=== PATIENT | female | born 1990 | race African-American/Black ===

== ENCOUNTER 2018-05-26 12:31 | Emergency (ER) | payer BC ==
[2018-05-26 13:27] VITALS: BP 118/83
[2018-05-26] MEDS ORDERED: KETOROLAC TROMETHAMINE 60 MG/2 ML SDV IM ONE (13:30)
--- NOTE | 2018-05-26 13:39 | ER Document Report ---
HPI - HPI Pain Level: 4 Context: Patient is a 28-year-old healthy female complaining of acute low back pain 3 days. Patient reports that pain started after she [place]. Patient denies any direct trauma to her back. She denies any fever. No paresthesia or radiculopathy. Patient walks without difficulty. Patient has no previous history of back pain. Associated Symptoms: None Exacerbated by: Movement Relieved by: Denies Similar symptoms previously: No Recently seen / treated by doctor: No - ROS Systems Reviewed and Negative: Yes All other systems reviewed and negative - CONSTITUTIONAL Constitutional: DENIES: Fever, Chills - REPRODUCTIVE Reproductive: DENIES: : Past Medical History - General Information source: Patient - Social History Smoking Status: Never Smoker Frequency of alcohol use: None Drug Abuse: None Lives with: Family Family History: Reviewed & Not Pertinent Patient has suicidal ideation: No Patient has homicidal ideation: No - Past Medical History Cardiac Medical History: Denies: Hx Coronary Artery Disease, Hx Heart Attack, Hx Hypertension Pulmonary Medical History: Denies: Hx Asthma, Hx Bronchitis, Hx COPD, Hx Pneumonia Neurological Medical History: 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 Denies: Hx Cerebrovascular Accident Renal/ Medical History: Denies: Hx Peritoneal Dialysis Musculoskeletal Medical History: Denies Hx Arthritis Past Surgical History: Reports: Hx Section, Hx Orthopedic Surgery - left knee - Immunizations Hx Diphtheria, Pertussis, Tetanus Vaccination: No - unsure Vertical Provider Document - CONSTITUTIONAL Agree With Documented VS: Yes Exam Limitations: No Limitations - HEENT HEENT: Atraumatic, PERRLA - NECK Neck: Normal Inspection, Supple - RESPIRATORY Respiratory: Breath Sounds Normal, No Respiratory Distress - CARDIOVASCULAR Cardiovascular: Regular Rate, Regular Rhythm - BACK Back: Abnormal Inspection - Positive lumbar spinal and paraspinal tenderness. Mild left SI tenderness. Negative straight leg test. No foot drop. Ambulatory without difficulty Course - Re-evaluation Re-evalutation: 05/26/18 13:37 Patient presents with acute low back pain without signs of spinal cord compression, cauda equina, infection, aneurysm or other serious etiology. Patient is neurologically intact, independently and steadily ambulatory without paresthesia or neurologic deficits. Given the extremely low risk of these diagnoses further testing and evaluation is not indicated today. Home care, follow-up with primary care and ED return precautions were discussed with the patient. Patient was given an IM injection of Toradol in the emergency department. Short course of anti-inflammatories and muscle relaxants prescribed for the patient. Patient verbalizes understanding of plan and is stable for discharge - Vital Signs Vital signs: Temp Pulse Resp BP Pulse Ox 97.8 F 68 18 118/83 99 05/26/18 13:16 05/26/18 13:16 05/26/18 13:16 05/26/18 13:16 05/26/18 13:16 Discharge - Discharge Clinical Impression: Low back pain Qualifiers: Chronicity: acute Back pain laterality: midline Sciatica presence: without sciatica Qualified Code(s): M54.5 - Low back pain Condition: Stable Disposition: HOME, SELF-CARE Instructions: Ice Packs ([facility]), Warm Packs ([facility]), Low Back Pain ([facility]), Muscle Relaxers ([facility]), Ibuprofen (General) ([facility]), Toradol Injection ([facility]) Additional Instructions: Take medications as prescribed Alternate ice and heat to the sore area Recommend topical anesthetic such as Aspercreme with lidocaine Follow-up with your primary care if pain persists more than 10 days Prescriptions: Ibuprofen [Motrin 800 Mg Tablet] 800 mg PO Q6H #20 tablet Methocarbamol [Robaxin 500 Mg Tablet] 1,000 mg PO Q6 #30 tablet Forms: Return to Work Referrals: SEBASTIÁN GLEASON DO [Primary Care Provider] - Follow up as needed
== END 2018-05-26 14:10 | disposition home or self-care (01) ==
LOC: ER 12:31
DX: M54.5 Low back pain (principal)
CPT/HCPCS: 99283; 96372; J1885

== ENCOUNTER 2018-07-16 19:14 | Emergency (ER) | payer SELFPAY ==
[2018-07-16 19:20] VITALS: BP 138/91
[2018-07-16] MEDS ORDERED: METOCLOPRAMIDE HCL ORAL SOLN 10 MG/10 ML UDCUP PO ONE (19:53)
[2018-07-16] MEDS ORDERED: MAG HYDROX/AL HYDROX/SIMETH SUSP 30 ML UDCUP PO ONE (19:53)
[2018-07-16] MEDS ORDERED: LIDOCAINE 2% VISCOUS SOLN 20 ML UDCUP PO ONE (19:53)
--- NOTE | 2018-07-16 20:20 | ER Document Report ---
ED Medical Screen (RME) - General Chief Complaint: Abdominal Pain Stated Complaint: ABDOMINAL PAIN Time Seen by Provider: 07/16/18 19:42 TRAVEL OUTSIDE OF THE [place] IN LAST 30 DAYS: No - HPI Patient complains to provider of: abdominal pain Onset: Other - This is a 28-year-old otherwise healthy female who presents for burning epigastric pain which she has had for the last several months. She was previously evaluated in outside hospital at which time she improved with the administration of some medication there and was prescribed an acid pill which she took with only modest improvement in her symptoms thereafter. Since that time she has been unable to follow-up as she lost insurance. She denies any fevers or chills, emesis, discolored stools, foul-smelling stools, chest pain shortness of breath or fatigue. - Related Data Allergies/Adverse Reactions: ibuprofen [From Advil] Allergy (Intermediate, Verified 07/16/18 19:15) Facial swelling amoxicillin [Amoxicillin] Allergy (Unknown, Verified 07/16/18 19:15) Unknown reaction Penicillins Allergy (Unknown, Verified 07/16/18 19:15) Unknown reaction Contrast Dye Allergy (Uncoded 07/16/18 19:15) Past Medical History - General Information source: Patient - Social History Chew tobacco use (# tins/day): No Frequency of alcohol use: None Drug Abuse: None - Past Medical History Cardiac Medical History: Denies: Hx Coronary Artery Disease, Hx Heart Attack, Hx Hypertension Pulmonary Medical History: Denies: Hx Asthma, Hx Bronchitis, Hx COPD, Hx Pneumonia Neurological Medical History: 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 Denies: Hx Cerebrovascular Accident Renal/ Medical History: Denies: Hx Peritoneal Dialysis Musculoskeltal Medical History: Denies Hx Arthritis Past Surgical History: Reports: Hx Section, Hx Orthopedic Surgery - left knee - Immunizations Hx Diphtheria, Pertussis, Tetanus Vaccination: No - unsure Review of Systems - Review of Systems -: Yes All other systems reviewed and negative Physical Exam - Vital signs Vitals: Temp Pulse Resp BP Pulse Ox 98.6 F 78 16 138/91 H 98 07/16/18 19:18 07/16/18 19:18 07/16/18 19:18 07/16/18 19:18 07/16/18 19:18 - General General appearance: Appears well In distress: None - HEENT Head: Normocephalic Eyes: Normal Conjunctiva: Normal Cornea: Normal Extraocular movements intact: Yes Eyelashes: Normal Pupils: PERRL - Respiratory Respiratory status: No respiratory distress Chest status: Nontender Breath sounds: Normal Chest palpation: Normal - Cardiovascular Rhythm: Regular Heart sounds: Normal auscultation Murmur: No - Abdominal Inspection: Normal Distension: No distension Tenderness: Nontender - Back Back: Normal - Extremities General upper extremity: Normal inspection, Nontender, Normal ROM, Normal strength General lower extremity: Normal inspection, Nontender, Normal ROM, Normal strength - Neurological Neuro grossly intact: Yes Cognition: Normal Orientation: AAOx4 [place] Coma Scale Eye Opening: Spontaneous [place] Coma Scale Verbal: Oriented [place] Coma Scale Motor: Obeys Commands [place] Coma Scale Total: 15 Speech: Normal Cranial nerves: Normal Cerebellar coordination: Normal Motor strength normal: LUE, RUE, LLE, RLE - Psychological Associated symptoms: Normal affect Course - Re-evaluation Re-evalutation: 07/16/18 20:18 This 28-year-old female presents for evaluation of persistent abdominal pain. She was evaluated previously and diagnosed with a potential gastric ulcer, she did have improvement with medication thereafter subsequently stopped taking it because it did not help that much. She denies any fevers or chills. Her abdominal examination is reassuring. Her pain is directly over her stomach. Given that this patient has likely symptomatic gastritis have discussed with her all options regarding further testing including but not limited to blood work imaging referral, she prefers to attempt a conservative approach with a GI cocktail here and symptom reassessment. - Vital Signs Vital signs: Temp Pulse Resp BP Pulse Ox 98.6 F 78 16 138/91 H 98 07/16/18 19:18 07/16/18 19:18 07/16/18 19:18 07/16/18 19:18 07/16/18 19:18 Doctor's Discharge - Discharge Clinical Impression: Gastritis Qualifiers: Gastritis type: unspecified gastritis Chronicity: chronic Gastritis bleeding: presence of bleeding unspecified Qualified Code(s): K29.50 - Unspecified chronic gastritis without bleeding Abdominal pain Qualifiers: Abdominal location: generalized Qualified Code(s): R10.84 - Generalized abdominal pain Condition: Good Disposition: HOME, SELF-CARE Instructions: Gastritis ([facility]) Prescriptions: Ranitidine HCl [Zantac 75 mg Tablet] 75 mg PO BID #40 tablet Sucralfate 1 gm PO TID #500 ml Referrals: SEBASTIÁN GLEASON DO [Primary Care Provider] - Follow up as needed
== END 2018-07-16 20:55 | disposition home or self-care (01) ==
LOC: ER 19:14
DX: K29.50 Unspecified chronic gastritis without bleeding (principal); R10.84 Generalized abdominal pain; R10.13 Epigastric pain; Z88.0 Allergy status to penicillin
CPT/HCPCS: 99283; J3490

== ENCOUNTER 2018-10-10 08:33 | Emergency (ER) | payer OTHER ==
[2018-10-10] MEDS ORDERED: CEPHALEXIN 500 MG CAPSULE PO ONE (09:20)
[2018-10-10] MEDS ORDERED: ACETAMINOPHEN 325 MG TABLET PO ONE (09:20)
--- NOTE | 2018-10-10 09:28 | ER Document Report ---
ED ENT - General Chief Complaint: Ear Pain Stated Complaint: EAR PAIN Time Seen by Provider: 10/10/18 08:54 Mode of Arrival: Ambulatory Information source: Patient Notes: 28-year-old female presents to ED for complaint of right ear pain. She states that she has had a virus earlier but she does not really feel the drainage now but she does have a severe pain in the right ear for 2 days and it is not getting better. Patient denies any coughs or fevers. TRAVEL OUTSIDE OF THE [place] IN LAST 30 DAYS: No - HPI Patient complains to provider of: Ear problem Onset: Other - 2 days Onset/Duration: Gradual Quality of pain: Achy - Throbbing Severity: Moderate Pain Level: 4 Context: Recent Illness Location of pain: Ears, Nose, Sinus Associated symptoms: Ear pain - Right Similar symptoms previously: Yes Recently seen / treated by doctor: No - Related Data Allergies/Adverse Reactions: ibuprofen [From Advil] Allergy (Intermediate, Verified 10/10/18 08:41) Facial swelling amoxicillin [Amoxicillin] Allergy (Unknown, Verified 10/10/18 08:41) Unknown reaction Penicillins Allergy (Unknown, Verified 10/10/18 08:41) Unknown reaction Contrast Dye Allergy (Uncoded 10/10/18 08:41) Past Medical History - General Information source: Patient - Social History Smoking Status: Never Smoker Cigarette use (# per day): No Chew tobacco use (# tins/day): No Smoking Education Provided: No Frequency of alcohol use: Rare Drug Abuse: None Occupation: Daycare Lives with: Family Family History: Reviewed & Not Pertinent Patient has suicidal ideation: No Patient has homicidal ideation: No - Past Medical History Cardiac Medical History: Reports: None Pulmonary Medical History: Reports: None Neurological Medical History: 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, Hx Seizures - with AVM Endocrine Medical History: Reports: None Renal/ Medical History: Reports: None Malignancy Medical History: Reports: None GI Medical History: Reports: None Musculoskeletal Medical History: Reports Hx Musculoskeletal Trauma - Tibial plateau fracture Skin Medical History: Reports None Psychiatric Medical History: Reports: None Traumatic Medical History: Reports: Hx Fractures - Tibial plateau Infectious Medical History: Reports: None Past Surgical History: Reports: Hx Section, Hx Orthopedic Surgery - left knee - Immunizations Hx Diphtheria, Pertussis, Tetanus Vaccination: No - unsure Review of Systems - Review of Systems Constitutional: No symptoms reported EENT: Ear pain Cardiovascular: No symptoms reported Respiratory: No symptoms reported Gastrointestinal: No symptoms reported Genitourinary: No symptoms reported Female Genitourinary: No symptoms reported Musculoskeletal: No symptoms reported Skin: No symptoms reported Hematologic/Lymphatic: No symptoms reported Neurological/Psychological: No symptoms reported -: Yes All other systems reviewed and negative Physical Exam - Vital signs Vitals: Temp Pulse Resp BP Pulse Ox 98.6 F 81 18 142/92 H 99 10/10/18 08:59 10/10/18 08:59 10/10/18 08:59 10/10/18 08:59 10/10/18 08:59 Interpretation: Normal - General General appearance: Appears well, Alert - HEENT Head: Normocephalic, Atraumatic Eyes: Normal Pupils: PERRL Ears: Normal External canal: Normal Tympanic membrane: Bulging - Right, Hemotympanum, Injected, Loss of landmarks Sinus: Normal Nasal: Purulent discharge, Swelling Mouth/Lips: Normal Mucous membranes: Normal Pharynx: Post nasal drainage Neck: Normal - Respiratory Respiratory status: No respiratory distress Chest status: Nontender Breath sounds: Normal Chest palpation: Normal - Cardiovascular Rhythm: Regular Heart sounds: Normal auscultation Murmur: No - Abdominal Inspection: Normal Distension: No distension Bowel sounds: Normal Tenderness: Nontender Organomegaly: No organomegaly - Back Back: Normal, Nontender - Extremities General upper extremity: Normal inspection, Nontender, Normal color, Normal ROM, Normal temperature General lower extremity: Normal inspection, Nontender, Normal color, Normal ROM, Normal temperature, Normal weight bearing. No: Juan Jose's sign - Neurological Neuro grossly intact: Yes Cognition: Normal Orientation: AAOx4 [place] Coma Scale Eye Opening: Spontaneous [place] Coma Scale Verbal: Oriented [place] Coma Scale Motor: Obeys Commands [place] Coma Scale Total: 15 Speech: Normal Motor strength normal: LUE, RUE, LLE, RLE Sensory: Normal - Psychological Associated symptoms: Normal affect, Normal mood - Skin Skin Temperature: Warm Skin Moisture: Dry Skin Color: Normal Course - Re-evaluation Re-evalutation: 10/10/18 09:32 Patient has a right otitis media and a upper respiratory infection. She does note swelling to the nasal turbinates with purulent drainage. She states she does not feel like she is having any postnasal drip or runny nose or congestion is able to breathe well but they are very swollen with drainage. Patient was given instructions on upper respiratory infection as well as otitis media. She states she has been told her whole life by her mother that she was allergic to penicillin because she had a rash when she was a child. Patient was treated with Keflex for her otitis media and will be monitored for 30 minutes before discharge and home. Patient has been given instructions to return immediately if she had any swelling to the lips tongue or any difficulty swallowing or breathing - Vital Signs Vital signs: Temp Pulse Resp BP Pulse Ox 98.8 F 83 16 129/89 H 100 10/10/18 09:50 10/10/18 09:50 10/10/18 09:50 10/10/18 09:50 10/10/18 09:50 Discharge - Discharge Clinical Impression: Right otitis media Qualifiers: Otitis media type: suppurative Chronicity: acute Recurrence: not specified as recurrent Spontaneous tympanic membrane rupture: without spontaneous rupture Qualified Code(s): H66.001 - Acute suppurative otitis media without spontaneous rupture of ear drum, right ear URI (upper respiratory infection) Qualifiers: URI type: unspecified URI Qualified Code(s): J06.9 - Acute upper respiratory infection, unspecified Condition: Stable Disposition: HOME, SELF-CARE Instructions: Family Physicians / Practices Additional Instructions: OTITIS MEDIA: You have a middle ear infection (otitis media). This is usually a complication of a cold or sore throat. The middle ear cavity becomes filled with infection. Pressure and stretching of the ear drum cause pain. Antibiotics are required. A 10 day course is usually prescribed. A decongestant may be recommended if you have a "runny nose." You may need anesthetic drops or other pain medication. A follow-up exam may be recommended to make sure the infection has completely cleared. If the ear begins to drain, it means the ear drum has ruptured. This will usually heal spontaneously. However, it means you should keep the ear dry until re-examined by a doctor. Call the physician or return for examination at once if there is severe headache, stiff neck, confusion, increasing fever, or dizziness. You should improve significantly within two days. If you're not better, call the doctor. UPPER RESPIRATORY ILLNESS: You have a viral infection of the respiratory passages -- a "cold." This common infection causes nasal congestion, drainage, and often sore throat and cough. It is highly contagious. The disease usually lasts about 10 to 14 days. There is no "cure" for the viral infection -- it must run its course. If there is a complication, such as bacterial infection in the nose, sinuses, middle ear, or bronchial tubes, antibiotics may be required. The antibiotics won't affect the virus. Drink plenty of fluids. A humidifier may help. An expectorant medication or decongestant may make you more comfortable. Use acetaminophen or ibuprofen for fever or aches. See the doctor if fever persists over two days, if there is any significant worsening of your symptoms, or if you simply fail to improve as expected. Cephalexin The antibiotic you've been prescribed is a member of the cephalosporin class. This type of antibiotic covers a wide variety of infections, including those of the skin, lungs, and urinary tract. It's useful for staph infections. This antibiotic is slightly similar to the penicillin family. In rare cases, a person who is allergic to penicillin will also be allergic to this medication. If you have had a severe allergic reaction to penicillin, and have not taken this antibiotic since that time, notify your doctor. Antibiotics which cover many germs ("broad spectrum" antibiotics) are more likely to cause diarrhea or "yeast" infections. Women prone to vaginal yeast problems may suffer an attack after taking this antibiotic. In infants, oral thrush (white spots "stuck" on the cheek) or yeast diaper rash may result. See your doctor if these problems occur. Call at once if you develop itching, hives, shortness of breath, or lightheadedness. USE OF ACETAMINOPHEN (Tylenol): Acetaminophen may be taken for pain relief or fever control. It's much safer than aspirin, offering a wider range of "safe" dosages. It is safe during . Some brand names are Tylenol, Panadol, Datril, Anacin 3, Tempra, and Liquiprin. Acetaminophen can be repeated every four hours. The following are maximum recommended dosages: WEIGHT Dose Drops Elixir Chewable(80mg) (LBS.) drprs=droppers tsp=teaspoon 6 40 mg 0.4 ml (1/2) 6-11 80 mg 0.8 ml (full) tsp 1 tab 12-16 120 mg 1 1/2 drprs 3/4 tsp 1 1/2 tabs 17-23 160 mg 2 drprs 1 tsp 2 tabs 24-30 240 mg 3 drprs 1 1/2 tsp 3 tabs 30-35 320 mg 2 tsp 4 tabs 36-41 360 mg 2 1/4 tsp 4 1/2 tabs 42-47 400 mg 2 1/2 tsp 5 tabs 48-53 480 mg 3 tsp 6 tabs 54-59 520 mg 3 1/4 tsp 6 1/2 tabs 60-64 560 mg 3 1/2 tsp 7 tabs 65-70 600 mg 3 3/4 tsp 7 1/2 tabs 71-76 640 mg 4 tsp 8 tabs 77-82 720 mg 4 1/2 tsp 9 tabs 83-88 800 mg 5 tsp 10 tabs >89 pounds or adults 650 mg to 900 mg Acetaminophen can be repeated every four hours. Maximum dose not to exceed 4000 mg a day. These maximum recommended dosages are slightly higher than the dosages written on the product container, but these dosages are very safe and below the toxic dosage for acetaminophen. FOLLOW-UP CARE: If you have been referred to a physician for follow-up care, call the physicians office for an appointment as you were instructed or within the next two days. If you experience worsening or a significant change in your symptoms, notify the physician immediately or return to the Emergency Department at any time for re-evaluation. Prescriptions: Cephalexin Monohydrate [Keflex 500 mg Capsule] 500 mg PO Q6H 10 Days capsule Forms: Elevated Blood Pressure, Return to Work
[2018-10-10 09:56] VITALS: BP 129/89
== END 2018-10-10 10:05 | disposition home or self-care (01) ==
LOC: ER 08:33
DX: H66.001 Acute suppurative otitis media without spontaneous rupture of ear drum, right ear (principal); J06.9 Acute upper respiratory infection, unspecified; H92.01 Otalgia, right ear; Z88.6 Allergy status to analgesic agent; Z88.0 Allergy status to penicillin; Z91.041 Radiographic dye allergy status
CPT/HCPCS: 99283

== ENCOUNTER 2018-10-11 09:04 | Emergency (ER) | payer OTHER ==
--- NOTE | 2018-10-11 09:32 | ER Document Report ---
ED ENT - General Chief Complaint: Foreign Body in Ear Stated Complaint: FOREIGN OBJECT IN EAR Time Seen by Provider: 10/11/18 09:13 Mode of Arrival: Ambulatory Information source: Patient Notes: 28-year-old female presented to ED for Q-tip stuck in her right ear. She was seen yesterday for an ear infection and started on antibiotics. She states this morning she had some drainage and put a Q-tip in her ear and is now stopped. Q- tip is falling all apart. She does have drainage and it appears that her tympanic membrane may be ruptured. I will have Dr. Lyod go and examined the ear before flushing it with any saline or warm water. Patient is afebrile. TRAVEL OUTSIDE OF THE [place] IN LAST 30 DAYS: No - HPI Patient complains to provider of: Ear problem Onset: This morning Quality of pain: Stabbing, Other Severity: Severe Pain Level: 5 Location of pain: Ears - Patient stuck a Q-tip in her ear because it was draining while she had a otitis media. Associated symptoms: Ear pain, Ear drainage, Other - A Q-tip in his ear and it is breaking apart. Similar symptoms previously: Yes Recently seen / treated by doctor: Yes - Related Data Allergies/Adverse Reactions: ibuprofen [From Advil] Allergy (Intermediate, Verified 10/11/18 09:04) Facial swelling amoxicillin [Amoxicillin] Allergy (Unknown, Verified 10/11/18 09:04) Unknown reaction Penicillins Allergy (Unknown, Verified 10/11/18 09:04) Unknown reaction Contrast Dye Allergy (Uncoded 10/11/18 09:04) Past Medical History - General Information source: Patient - Social History Smoking Status: Never Smoker Cigarette use (# per day): No Chew tobacco use (# tins/day): No Smoking Education Provided: No Frequency of alcohol use: Rare Drug Abuse: None Occupation: Daycare Lives with: Family Family History: Reviewed & Not Pertinent Patient has suicidal ideation: No Patient has homicidal ideation: No - Past Medical History Cardiac Medical History: Reports: None Pulmonary Medical History: Reports: None Neurological Medical History: 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, Hx Seizures - with AVM Endocrine Medical History: Reports: None Renal/ Medical History: Reports: None Malignancy Medical History: Reports: None GI Medical History: Reports: None Musculoskeletal Medical History: Reports None, Reports Hx Musculoskeletal Trauma - Tibial plateau fracture Skin Medical History: Reports None Psychiatric Medical History: Reports: None Traumatic Medical History: Reports: Hx Fractures - Tibial plateau Infectious Medical History: Reports: None Past Surgical History: Reports: Hx Section, Hx Orthopedic Surgery - left knee - Immunizations Hx Diphtheria, Pertussis, Tetanus Vaccination: No - unsure Review of Systems - Review of Systems Constitutional: No symptoms reported EENT: Ear pain, Ear discharge Cardiovascular: No symptoms reported Respiratory: No symptoms reported Gastrointestinal: No symptoms reported Genitourinary: No symptoms reported Female Genitourinary: No symptoms reported Musculoskeletal: No symptoms reported Skin: No symptoms reported Hematologic/Lymphatic: No symptoms reported Neurological/Psychological: No symptoms reported -: Yes All other systems reviewed and negative Physical Exam - Vital signs Vitals: Temp Pulse Resp BP Pulse Ox 99.8 F 124 H 20 125/82 96 10/11/18 09:07 10/11/18 09:07 10/11/18 09:07 10/11/18 09:07 10/11/18 09:07 Interpretation: Normal - General General appearance: Appears well, Alert - HEENT Head: Normocephalic, Atraumatic Eyes: Normal Pupils: PERRL Ears: Other - Pain was in the touch to the ear External canal: Blood in canal, Foreign body - Patient stuck a Q-tip in her right ear and the tip stayed in the ear. Patient has otitis medias that she was treated for yesterday Sinus: Normal Nasal: Normal Mouth/Lips: Normal Pharynx: Normal Neck: Normal - Respiratory Respiratory status: No respiratory distress Chest status: Nontender Breath sounds: Normal Chest palpation: Normal - Cardiovascular Rhythm: Regular Heart sounds: Normal auscultation Murmur: No - Abdominal Inspection: Normal Distension: No distension Bowel sounds: Normal Tenderness: Nontender Organomegaly: No organomegaly - Back Back: Normal, Nontender - Extremities General upper extremity: Normal inspection, Nontender, Normal color, Normal ROM, Normal temperature General lower extremity: Normal inspection, Nontender, Normal color, Normal ROM, Normal temperature, Normal weight bearing. No: Juan Jose's sign - Neurological Neuro grossly intact: Yes Cognition: Normal Orientation: AAOx4 [place] Coma Scale Eye Opening: Spontaneous [place] Coma Scale Verbal: Oriented [place] Coma Scale Motor: Obeys Commands [place] Coma Scale Total: 15 Speech: Normal Motor strength normal: LUE, RUE, LLE, RLE Sensory: Normal - Psychological Associated symptoms: Normal affect, Normal mood - Skin Skin Temperature: Warm Skin Moisture: Dry Skin Color: Normal Course - Re-evaluation Re-evalutation: 10/11/18 09:37 Attempted to remove Q-tip with hemostats and with curette and Q-tip is falling all apart. I have consulted Dr. Loyd to come and look at the ear and help me to remove it as it appears that the tympanic membrane is ruptured and I do not want to just irrigate the ear unless he sees it first. 10/11/18 10:54 Dr. Loyd did come and examined the patient he suggested that we put ear wick and Polytrim eardrops in the ear and have patient follow-up with ENT on Saturday. Ear which were placed into the right ear as well as Polytrim eardrops. Patient was given the prescription and a bottle to ensure she had enough drops until she is seen by ENT. ENT is numb number and name was given to patient at discharge. She was encouraged please to call on Saturday it is important that she follows up due to this infection. Patient did verbalize that she would follow- up. Patient was given a prescription for a small amount of narcotics due to the ear pain. - Vital Signs Vital signs: Temp Pulse Resp BP Pulse Ox 99.2 F 100 18 131/80 H 94 10/11/18 10:03 10/11/18 10:03 10/11/18 10:03 10/11/18 10:03 10/11/18 10:03 Discharge - Discharge Clinical Impression: q tip in right ear canal Otitis externa Qualifiers: Otitis externa type: unspecified type Chronicity: acute Laterality: right Qualified Code(s): H60.501 - Unspecified acute noninfective otitis externa, right ear Condition: Stable Disposition: HOME, SELF-CARE Instructions: Family Physicians / Practices Additional Instructions: You were seen today for a Q-tip in your ear canal. He was seen yesterday for otitis media. Your ear did rupture that is why you were having drainage from your ear. This is not unusual when you have an otitis media. The antibiotics are try to help to clear the ear infection up but sometimes the drum does rupture. That usually releases the pressure from the ear and you feel better and then you complete your antibiotics. They you put a Q-tip in the ear because it was draining. It left the cotton from the Q-tip in your ear canal. The drainage has mixed with the cotton and it is now still in your ear. Due to the cotton you have now developed an otitis externa. Further trying to remove the cotton tip will just increase the infection in your ear. We have put a wick in your ear with eardrops. Please do not try to remove the cotton tip or the ear wick by yourself. Please use the eardrops as you have been instructed. Please follow-up with the ENT doctor by telephone on Saturday to schedule follow-up appointment. OTITIS EXTERNA: You have otitis externa -- an infection of the outer ear canal. This can be very painful. It's sometimes called "swimmer's ear," because it often occurs after prolonged water exposure. Many things, such as earwax and dirt in the ear, can contribute to it. The usual treatment is antibiotic/antiinflammatory ear drops. Occasionally, a wick will be placed in the ear to draw in the medicine. If the infection is severe, an oral antibiotic may be prescribed. Pain medication is often needed. Avoid getting water in the ear. Outer ear infections often take longer to heal than you might expect. Some tenderness and ache in the ear may persist for about two weeks. See your physician if you fail to improve as expected. Call the doctor at once if you develop fever, increasing swelling (particularly if it makes your ear "poke out"), severe headache, stiff neck, or decreased hearing. USE OF EAR DROPS: Your ear drops won't do much good if they don't get all the way in. To help the ear drops penetrate all the way to the ear drum, use the following technique. If you encounter problems of any kind, notify the physician. (1) Lay your head sideways on a pillow. (2) Place the dropper tip just barely inside the ear canal, almost touching the bottom side of the canal. The liquid is tolerated better on the bottom of the canal. (3) Squeeze out the appropriate amount of medicine, and remove the dropper. (4) Grab the back of the ear (just behind the ear canal) between your index finger and thumb. (5) Tug up, then let the ear drop back. Repeat several times. This pumps the medicine down. (6) Wait five minutes, then place a cotton ball in the ear canal to catch and hold the medicine. USING EAR DROPS WITH A WICK: A wick may be placed in your ear. This keeps the medicine in constant contact with the ear canal. You'll need to put fresh medicine into the wick. Follow these instructions. If you encounter problems of any kind, notify the physician. (1) Lay your head sideways on a pillow. (2) Place the dropper tip so it's almost touching the wick. (3) Squeeze out the appropriate amount of medicine. (4) Wait a minute for the medicine to soak in before sitting up. (5) Wipe away any extra medicine from your ear. USE OF ACETAMINOPHEN (Tylenol): Acetaminophen may be taken for pain relief or fever control. It's much safer than aspirin, offering a wider range of "safe" dosages. It is safe during . Some brand names are Tylenol, Panadol, Datril, Anacin 3, Tempra, and Liquiprin. Acetaminophen can be repeated every four hours. The following are maximum recommended dosages: WEIGHT Dose Drops Elixir Chewable(80mg) (LBS.) drprs=droppers tsp=teaspoon 6 40 mg 0.4 ml (1/2) 6-11 80 mg 0.8 ml (full) tsp 1 tab 12-16 120 mg 1 1/2 drprs 3/4 tsp 1 1/2 tabs 17-23 160 mg 2 drprs 1 tsp 2 tabs 24-30 240 mg 3 drprs 1 1/2 tsp 3 tabs 30-35 320 mg 2 tsp 4 tabs 36-41 360 mg 2 1/4 tsp 4 1/2 tabs 42-47 400 mg 2 1/2 tsp 5 tabs 48-53 480 mg 3 tsp 6 tabs 54-59 520 mg 3 1/4 tsp 6 1/2 tabs 60-64 560 mg 3 1/2 tsp 7 tabs 65-70 600 mg 3 3/4 tsp 7 1/2 tabs 71-76 640 mg 4 tsp 8 tabs 77-82 720 mg 4 1/2 tsp 9 tabs 83-88 800 mg 5 tsp 10 tabs >89 pounds or adults 650 mg to 900 mg Acetaminophen can be repeated every four hours. Maximum dose not to exceed 4000 mg a day. These maximum recommended dosages are slightly higher than the dosages written on the product container, but these dosages are very safe and below the toxic dosage for acetaminophen. ORAL NARCOTIC MEDICATION: You have been given a prescription for pain control. This medication is a narcotic. It's best taken with food, as nausea can result if taken on an empty stomach. Don't operate machinery or drive within six hours of taking this medication. Do not combine this medicine with alcohol, or with any medication which can cause sedation (such as cold tablets or sleeping pills) unless you get permission from the physician. Narcotics tend to cause constipation. If possible, drink plenty of fluids and eat a diet high in fiber and fruits. Please be aware that prescription narcotics also have the potential for abuse. People become addicted to these medications because of the general sense of wellbeing that they induce. This feeling along with a significant reduction in tension, anxiety, and aggression provides a stimulating seductive quality to these drugs. Once your pain is under control, we encourage you to discard your unused narcotics. FOLLOW-UP CARE: If you have been referred to a physician for follow-up care, call the physicians office for an appointment as you were instructed or within the next two days. If you experience worsening or a significant change in your symptoms, notify the physician immediately or return to the Emergency Department at any time for re-evaluation. Prescriptions: Hydrocodone/Acetaminophen [[place] 5-325 mg Tablet] 1 tab PO Q6HP PRN #7 tablet PRN Reason: Polymyxin B Sulfate/Tmp [Polytrim Oph Soln 10 ml] 4 drop RT_EAR BID #1 bottle Forms: Return to Work Referrals: DENISE ALANIZ DO [ASSOCIATE] - 10/13/18
[2018-10-11] MEDS ORDERED: POLYMYXIN B SULFATE/TMP OPH SOLN (10 ML/ER DISP) OD PRN (09:48)
[2018-10-11 10:05] VITALS: BP 131/80
== END 2018-10-11 10:25 | disposition home or self-care (01) ==
LOC: ER 09:04
DX: T16.1XXA Foreign body in right ear, initial encounter (principal); H92.11 Otorrhea, right ear; H60.501 Unspecified acute noninfective otitis externa, right ear
CPT/HCPCS: 99282; J3490

== ENCOUNTER 2019-08-13 07:24 | Emergency (ER) | payer OTHER ==
[2019-08-13] MEDS ORDERED: NORMAL SALINE 1000 ML 1,000 ML IV ONE (08:23)
[2019-08-13] MEDS ORDERED: ONDANSETRON HCL INJ/PF 4 MG/2 ML SDV IV ONE (08:23)
--- NOTE | 2019-08-13 09:03 | ER Document Report ---
ED General - General Chief Complaint: Nausea/Vomiting Stated Complaint: VOMITING Time Seen by Provider: 08/13/19 07:52 Mode of Arrival: Ambulatory Information source: Patient Notes: 29-year-old female presents emergency department with complaints of nausea and vomiting since Saturday. Reports she was nauseated today and vomited upon arrival to the emergency department. She reports she has lost 20 pounds in 2 days. Patient complains of epigastric abdominal pain. Denies fever. Reports she did have a loose stool this a.m. Denies . Denies vaginal pain denies vaginal discharge. Denies pain with void. TRAVEL OUTSIDE OF THE [place] IN LAST 30 DAYS: No - HPI Patient complains to provider of: abdominal pain n/v Onset: Other - Saturday Onset/Duration: Persistent Quality of pain: Achy Associated symptoms: Nausea, Vomiting Exacerbated by: Denies Relieved by: Denies Similar symptoms previously: No Recently seen / treated by doctor: No - Related Data Allergies/Adverse Reactions: ibuprofen [From Advil] Allergy (Intermediate, Verified 08/13/19 07:38) Facial swelling amoxicillin [Amoxicillin] Allergy (Unknown, Verified 08/13/19 07:38) Unknown reaction Penicillins Allergy (Unknown, Verified 08/13/19 07:38) Unknown reaction Contrast Dye Allergy (Uncoded 10/11/18 09:04) Past Medical History - General Information source: Patient Last Menstrual Period: current - Social History Smoking Status: Current Every Day Smoker Chew tobacco use (# tins/day): No Frequency of alcohol use: None Occupation: early childhood worker Lives with: Family - son Family History: Reviewed & Not Pertinent Patient has suicidal ideation: No Patient has homicidal ideation: No Neurological Medical History: 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, Hx Seizures - with AVM Renal/ Medical History: Denies: Hx Peritoneal Dialysis Musculoskeletal Medical History: Reports Hx Musculoskeletal Trauma - Tibial plateau fracture Traumatic Medical History: Reports: Hx Fractures - Tibial plateau Past Surgical History: Reports: Hx Section, Hx Orthopedic Surgery - left knee, Hx Tonsillectomy - Immunizations Hx Diphtheria, Pertussis, Tetanus Vaccination: No - unsure Review of Systems - Review of Systems Notes: Review HPI for review of systems., All other systems negative Physical Exam - Vital signs Vitals: Temp Pulse Resp BP Pulse Ox 98.9 F 77 18 115/73 98 08/13/19 07:35 11/07/19 07:35 08/13/19 07:35 08/13/19 07:35 08/13/19 07:35 - Notes Notes: PHYSICAL EXAMINATION: GENERAL: Well-appearing and in no acute distress HEAD: Atraumatic, normocephalic. EYES: Pupils equal round and reactive to light, extraocular movements intact, sclera anicteric, conjunctiva are normal. ENT: nares patent, oropharynx clear without exudates. Moist mucous membranes. NECK: Normal range of motion, supple without lymphadenopathy LUNGS: CTAB and equal. No wheezes rales or rhonchi. HEART: Regular rate and rhythm without murmurs ABDOMEN: Soft, epigastric tenderness. No guarding, no rebound EXTREMITIES: Normal range of motion, no pitting edema. No cyanosis. NEUROLOGICAL: Cranial nerves grossly intact. Normal sensory/motor exams. PSYCH: Normal mood, normal affect. SKIN: Warm, Dry, normal turgor, no rashes or lesions noted Course - Re-evaluation Re-evalutation: 08/13/19 09:02 29-year-old female presents today with complaints of epigastric abdominal pain nausea vomiting since Saturday. Denies fever reports loose stool this a.m. Patient lives with her son reports he is not been sick. Patient denies pain with void. Denies urinary frequency. Patient does work at a childcare center. Labs will be obtained patient will be treated with IV fluids Zofran and a gallbladder ultrasound. She was instructed on plan of care and verbalized understanding. 08/13/19 19:45 Labs unremarkable ultrasound negative. Patient was instructed on all results. Instructed on viral illness. Instructed on clear liquids advance as tolerated. Also prescribed antinausea medicine. She verbalized understanding to all instructions. 08/13/19 09:03 08/13/19 09:03 MCV 85 fl (80-97) 08/13/19 09:03 MCH 28.1 pg (27.0-33.4) 08/13/19 09:03 MCHC 33.1 g/dL (32.0-36.0) 08/13/19 09:03 RDW 15.8 % (11.5-14.0) H 08/13/19 09:03 Seg Neutrophils % 63.7 % (42-78) 08/13/19 09:03 Chloride 99 mmol/L (98-107) 08/13/19 09:03 Carbon Dioxide 33 mmol/L (22-30) H 08/13/19 09:03 Anion Gap 9 (5-19) 08/13/19 09:03 Est GFR ( Amer) > 60 (>60) 08/13/19 09:03 Glucose 93 mg/dL (75-110) 08/13/19 09:03 Calcium 9.7 mg/dL (8.4-10.2) 08/13/19 09:03 Total Bilirubin 0.6 mg/dL (0.2-1.3) 08/13/19 09:03 AST 20 U/L (14-36) 08/13/19 09:03 Alkaline Phosphatase 55 U/L (38-126) 08/13/19 09:03 Total Protein 7.6 g/dL (6.3-8.2) 08/13/19 09:03 Albumin 4.2 g/dL (3.5-5.0) 08/13/19 09:03 Lipase 35.5 U/L (23-300) 08/13/19 09:03 Urine Color KILLIAN 08/13/19 09:03 Urine Appearance SLIGHTLY-CLOUDY 08/13/19 09:03 Urine pH 7.0 (5.0-9.0) 08/13/19 09:03 Ur Specific [place] 1.026 08/13/19 09:03 Urine Protein 100 mg/dL (NEGATIVE) H 08/13/19 09:03 Urine Glucose (UA) NEGATIVE mg/dL (NEGATIVE) 08/13/19 09:03 Urine Ketones 80 mg/dL (NEGATIVE) H 08/13/19 09:03 Urine Blood MODERATE (NEGATIVE) H 08/13/19 09:03 Urine Nitrite NEGATIVE (NEGATIVE) 08/13/19 09:03 Ur Leukocyte Esterase NEGATIVE (NEGATIVE) 08/13/19 09:03 Urine WBC (Auto) 4 /HPF 08/13/19 09:03 Urine RBC (Auto) 140 /HPF 08/13/19 09:03 Abdomen Ultrasound 08/13/19 08:23 IMPRESSION: NORMAL RIGHT UPPER QUADRANT ULTRASOUND. Dictation of this chart was performed using voice recognition software; therefore, there may be some unintended grammatical errors. 08/13/19 19:46 - Vital Signs Vital signs: Temp Pulse Resp BP Pulse Ox 98.3 F 57 L 20 110/82 100 08/13/19 10:43 08/13/19 10:43 08/13/19 10:43 08/13/19 10:43 08/13/19 10:43 - Laboratory Result Diagrams: 08/13/19 09:03 08/13/19 09:03 Laboratory results interpreted by me: 08/13/19 08/13/19 08/13/19 09:03 09:03 09:03 RDW 15.8 H Potassium 3.5 L Carbon Dioxide 33 H Urine Protein 100 H Urine Ketones 80 H Urine Blood MODERATE H Urine Urobilinogen 2.0 H Urine Ascorbic Acid 40 H - Diagnostic Test Radiology reviewed: Image reviewed, Reports reviewed Discharge - Discharge Clinical Impression: Epigastric abdominal pain, Nausea and vomiting Condition: Stable Disposition: HOME, SELF-CARE Instructions: Antinausea Medication ([facility]), Evaluation of Upper Abdominal Pain ([facility]), Intravenous (IV) Fluids ([facility]) Additional Instructions: *You have been evaluated for upper abdominal pain, nausea/vomiting *Take medication as prescribed for nausea *Follow up with a primary care provider within 5 days *Return to ED for worsening condition, changes, needs *Return to ED if not better in 24 hours Prescriptions: Ondansetron [Zofran Odt 4 mg Tablet] 1 - 2 tab PO Q4H #10 tab.rapdis Forms: Return to Work
[2019-08-13 09:19] LABS: ABSOLUTE EOSINOPHILS # (AUTO) 0.2 10^3/uL (0.0-0.6); ABSOLUTE LYMPHOCYTES (AUTO) 1.4 10^3/uL (0.5-4.7); ABSOLUTE MONOCYTES (AUTO) 0.4 10^3/uL (0.1-1.4); ABSOLUTE NEUT (AUTO) 3.6 10^3/uL (1.7-8.2); BASOPHILS % (AUTO) 0.8 % (0-2); EOSINOPHILS % (AUTO) 2.9 % (0-6); HEMATOCRIT 39.7 % (36.0-47.0); HEMOGLOBIN 13.2 g/dL (12.0-15.5); LYMPHOCYTES % (AUTO) 25.2 % (13-45); MEAN CORPUSCULAR HEMOGLOBIN 28.1 pg (27.0-33.4); MEAN CORPUSCULAR HGB CONC 33.1 g/dL (32.0-36.0); MEAN CORPUSCULAR VOLUME 85 fl (80-97); MONOCYTES % (AUTO) 7.4 % (3-13); PLATELET COUNT 260 10^3/uL (150-450); RED BLOOD COUNT 4.69 10^6/uL (3.72-5.28); RED CELL DISTRIBUTION WIDTH 15.8 % (11.5-14.0); SEGMENTED NEUTROPHILS % (AUTO) 63.7 % (42-78); TOTAL CELLS COUNTED % (AUTO) 100 %; WHITE BLOOD COUNT 5.6 10^3/uL (4.0-10.5)
[2019-08-13 09:22] LABS: APPEARANCE,URINE SLIGHTLY-CLOUDY; BILIRUBIN,URINE NEGATIVE (NEGATIVE); COLOR,URINE AMBER; GLUCOSE, URINE NEGATIVE (NEGATIVE); KETONES,URINE 80 mg/dL (NEGATIVE); LEUKOCYTE ESTERASE,URINE NEGATIVE (NEGATIVE); NITRITE,URINE NEGATIVE (NEGATIVE); PROTEIN,URINE 100 mg/dL (NEGATIVE); URINE SPECIFIC GRAVITY 1.026
[2019-08-13 09:36] LABS: ALBUMIN 4.2 g/dL (3.5-5.0); ALKALINE PHOSPHATASE 55 U/L (38-126); ANION GAP 9 (5-19); ASPARTATE AMINO TRANSFERASE 20 U/L (14-36); BILIRUBIN,DIRECT 0.1 mg/dL (0.0-0.4); BILIRUBIN,TOTAL 0.6 mg/dL (0.2-1.3); BLOOD UREA NITROGEN 15 mg/dL (7-20); CALCIUM 9.7 mg/dL (8.4-10.2); CARBON DIOXIDE 33 mmol/L (22-30); CHLORIDE 99 mmol/L (98-107); GLUCOSE 93 mg/dL (75-110); POTASSIUM 3.5 mmol/L (3.6-5.0); TOTAL PROTEIN 7.6 g/dL (6.3-8.2)
--- NOTE | 2019-08-13 09:37 | RADIOLOGY REPORT (SQ) ---
EXAM DESCRIPTION: U/S ABDOMEN LIMITED W/O DOP COMPLETED DATE/TIME: 08/13/2019 9:10 am REASON FOR STUDY: upper abd pain n/v COMPARISON: None. TECHNIQUE: Dynamic and static grayscale images acquired of the abdomen and recorded on PACS. Additio nal selected color Doppler and spectral images recorded. LIMITATIONS: None. FINDINGS: PANCREAS: No masses. Visualized pancreatic duct normal caliber. LIVER: No masses. Echotexture normal. LIVER VASCULATURE: Normal directional flow of the main portal vein and hepatic veins. GALLBLADDER: No stones. Normal wall thickness. No pericholecystic fluid. ULTRASOUND-DETECTED PENN'S SIGN: Negative. INTRAHEPATIC DUCTS AND COMMON DUCT: CBD and intrahepatic ducts normal caliber. No filling defects. INFERIOR VENA CAVA: Normal flow. AORTA: No aneurysm. RIGHT KIDNEY: Normal size. Normal echogenicity. No solid or suspicious masses. No hydronephrosis. No calcifications. PERITONEAL AND RIGHT PLEURAL SPACE: No ascites or effusions. OTHER: No other significant findings. IMPRESSION: NORMAL RIGHT UPPER QUADRANT ULTRASOUND. TECHNICAL DOCUMENTATION: JOB ID: [id number]- All Rights Reserved Reading location - IP/workstation name: [email or web address]
[2019-08-13 10:43] VITALS: BP 110/82
== END 2019-08-13 10:45 | disposition home or self-care (01) ==
LOC: ER 07:24
DX: R11.2 Nausea with vomiting, unspecified (principal); R10.13 Epigastric pain; R10.816 Epigastric abdominal tenderness; R19.4 Change in bowel habit; R63.4 Abnormal weight loss; F17.200 Nicotine dependence, unspecified, uncomplicated; Z88.8 Allergy status to other drugs, medicaments and biological substances; Z88.0 Allergy status to penicillin; Z91.041 Radiographic dye allergy status
CPT/HCPCS: 99284; 96361; 96374; 36415; 83690; 85025; 81025; 80053; 81001; 76705; J2405; J7030

== ENCOUNTER 2019-08-16 07:43 | Emergency (ER) | payer OTHER ==
--- NOTE | 2019-08-16 09:12 | ER Document Report ---
ED Medical Screen (RME) - General Chief Complaint: Nausea/Vomiting Stated Complaint: VOMITING/WEAKNESS Time Seen by Provider: 08/16/19 08:33 Notes: Patient is requesting to see a physician. Seen here on for nausea and vomiting. Normal right upper quadrant ultrasound and negative work-up. Symptoms are persisting, patient with nausea and vomiting. Exam: Well-appearing in no acute distress I have greeted and performed a rapid initial assessment of this patient. A comprehensive ED assessment and evaluation of the patient, analysis of test results and completion of medical decision making process will be conducted by an additional ED providers. TRAVEL OUTSIDE OF THE [place] 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, Hx Seizures - with AVM x 1 Renal/ Medical History: Denies: Hx Peritoneal Dialysis Musculoskeltal Medical History: Reports Hx Musculoskeletal Trauma - Tibial plateau fracture Traumatic Medical History: Reports: Hx Fractures - Tibial plateau Past Surgical History: Reports: Hx Section, Hx Orthopedic Surgery - left knee, Hx Tonsillectomy - Immunizations Hx Diphtheria, Pertussis, Tetanus Vaccination: No - unsure Physical Exam - Vital signs Vitals: Temp Pulse Resp BP Pulse Ox 98.7 F 83 16 129/87 H 99 08/16/19 07:47 08/16/19 07:47 08/16/19 07:47 08/16/19 07:47 08/16/19 07:47 Course - Vital Signs Vital signs: Temp Pulse Resp BP Pulse Ox 98.7 F 83 16 129/87 H 99 08/16/19 07:47 08/16/19 07:47 08/16/19 07:47 08/16/19 07:47 08/16/19 07:47
[2019-08-16 09:32] LABS: ABSOLUTE BASOPHILS # (AUTO) 0.1 10^3/uL (0.0-0.2); ABSOLUTE EOSINOPHILS # (AUTO) 0.1 10^3/uL (0.0-0.6); ABSOLUTE LYMPHOCYTES (AUTO) 1.9 10^3/uL (0.5-4.7); ABSOLUTE MONOCYTES (AUTO) 0.7 10^3/uL (0.1-1.4); EOSINOPHILS % (AUTO) 1.4 % (0-6); MEAN CORPUSCULAR HEMOGLOBIN 28.5 pg (27.0-33.4); MEAN CORPUSCULAR HGB CONC 33.4 g/dL (32.0-36.0); MEAN CORPUSCULAR VOLUME 85 fl (80-97); RED CELL DISTRIBUTION WIDTH 15.8 % (11.5-14.0); TOTAL CELLS COUNTED % (AUTO) 100 %; WHITE BLOOD COUNT 7.5 10^3/uL (4.0-10.5)
[2019-08-16 09:42] LABS: ABSOLUTE NEUT (AUTO) 4.7 10^3/uL (1.7-8.2); BASOPHILS % (AUTO) 1.1 % (0-2); HEMATOCRIT 42.9 % (36.0-47.0); HEMOGLOBIN 14.3 g/dL (12.0-15.5); LYMPHOCYTES % (AUTO) 25.3 % (13-45); MONOCYTES % (AUTO) 9.2 % (3-13); PLATELET COUNT 303 10^3/uL (150-450); RED BLOOD COUNT 5.03 10^6/uL (3.72-5.28)
[2019-08-16 09:52] LABS: ALBUMIN 4.7 g/dL (3.5-5.0); ALKALINE PHOSPHATASE 62 U/L (38-126); ANION GAP 10 (5-19); ASPARTATE AMINO TRANSFERASE 21 U/L (14-36); BILIRUBIN,DIRECT 0.2 mg/dL (0.0-0.4); BILIRUBIN,TOTAL 0.7 mg/dL (0.2-1.3); BLOOD UREA NITROGEN 31 mg/dL (7-20); CALCIUM 10.2 mg/dL (8.4-10.2); CARBON DIOXIDE 37 mmol/L (22-30); CHLORIDE 95 mmol/L (98-107); GLUCOSE 98 mg/dL (75-110); POTASSIUM 3.9 mmol/L (3.6-5.0); TOTAL PROTEIN 8.9 g/dL (6.3-8.2)
[2019-08-16] MEDS ORDERED: NORMAL SALINE 1000 ML 1,000 ML IV ONE (10:54)
[2019-08-16] MEDS ORDERED: ONDANSETRON HCL INJ/PF 4 MG/2 ML SDV IV ONE (10:55)
--- NOTE | 2019-08-16 11:00 | ER Document Report ---
ED GI/ - General Mode of Arrival: Ambulatory Information source: Patient TRAVEL OUTSIDE OF THE [place] IN LAST 30 DAYS: No <SOPHIE MOON - Last Filed: 08/16/19 15:53> <DENISE HAMILTON - Last Filed: 08/16/19 18:47> - General Chief Complaint: Nausea/Vomiting Stated Complaint: VOMITING/WEAKNESS Time Seen by Provider: 08/16/19 08:33 Notes: This 29-year-old female presents to the emergency department with a history of nausea vomiting and diarrhea which began Saturday08/11/2019, last week. She has been using Pepto-Bismol states that the diarrhea has resolved, but she has now continued to have vomiting episodes with nausea whenever she drinks or attempts to eat. Been working hard to keep her fluids down however, presents to the emergency department today for further evaluation and treatment. Denies fever, dysuria, back pain, or cough and congestion. Has no known active medical problems. She denies likelihood of , has an IUD in place. 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, Hx Seizures - with AVM x 1 Renal/ Medical History: Denies: Hx Peritoneal Dialysis Musculoskeletal Medical History: Reports Hx Musculoskeletal Trauma - Tibial plateau fracture Traumatic Medical History: Reports: Hx Fractures - Tibial plateau Past Surgical History: Reports: Hx Section, Hx Orthopedic Surgery - left knee, Hx Tonsillectomy - Immunizations Hx Diphtheria, Pertussis, Tetanus Vaccination: No - unsure <SOPHIE MOON - Last Filed: 08/16/19 15:53> Review of Systems <SOPHIE MOON - Last Filed: 08/16/19 15:53> - Review of Systems Notes: REVIEW OF SYSTEMS GENERAL: + nausea, +vomiting, No fevers, chills, or weight loss. NEUROLOGIC: Negative HEENT: Negative PULMONARY: Negative GASTROINTESTINAL: + abdominal pain, + nausea, +vomiting, GENITOURINARY: Negative for any dysuria, hematuria, incontinence. INTEGUMENTARY: Negative HEMATOLOGIC: Negative (SOPHIE MOON) Physical Exam <SOPHIE MOON - Last Filed: 08/16/19 15:53> - Vital signs Vitals: Temp Pulse Resp BP Pulse Ox 98.7 F 83 16 129/87 H 99 08/16/19 07:47 08/16/19 07:47 08/16/19 07:47 08/16/19 07:47 08/16/19 07:47 - Notes Notes: PHYSICAL EXAMINATION: GENERAL: Well-appearing, well-nourished female in no acute distress. HEAD: Atraumatic, normocephalic. EYES: Pupils equal round and reactive to light, extraocular movements intact, sclera anicteric, conjunctiva are normal. ENT: nares patent, oropharynx clear without exudates. Moist mucous membranes. NECK: Normal range of motion, supple without lymphadenopathy LUNGS: Breath sounds clear to auscultation bilaterally and equal. No wheezes rales or rhonchi. HEART: Regular rate and rhythm without murmurs ABDOMEN: Soft, tenderness eigastric region, normoactive bowel sounds. No guarding, no rebound. No masses appreciated. EXTREMITIES: Normal range of motion, no pitting or edema. No cyanosis. NEUROLOGICAL: No focal neurological deficits. Moves all extremities spontaneously and on command. PSYCH: Normal mood, normal affect. SKIN: Warm, Dry, normal turgor, no rashes or lesions noted. (SOPHIE MOON) Course - Laboratory Result Diagrams: 08/16/19 09:17 08/16/19 09:17 <SOPHEI MOON - Last Filed: 08/16/19 15:53> - Laboratory Result Diagrams: 08/16/19 09:17 08/16/19 09:17 <DENISE HAMILTON - Last Filed: 08/16/19 18:47> - Re-evaluation Re-evalutation: Differential diagnosis Electrolyte imbalance, infection, ulcerative disease, ischemic/vascular 08/16/19 15:25 Patient was insistent that she get imaging of her abdomen. She was very concerned that there was something significant going on rather than a viral illness or GI upset secondary to food intolerance. A CT abdomen and pelvis with IV contrast was performed findings revealed some abnormalities concerning for intramucosal injury or possible contained perforation. Patient is being given oral contrast and a repeat scan will be performed later today. Discussed that finding with the patient and she is in agreement with having this study performed. 08/16/19 15:28 I have discussed this patient with my colleague, Dr Hamilton and he will follow-up on the CT scan and at this time will disposition the patient. (SOPHIE MOON) 08/16/19 18:43 Assumed care from previous physician. Patient shows marked thickening of stomach wall and duodenum concern for malignant process. Discussed these findings with the patient and stated that she would need to have an EGD for further evaluation. I did provide her surgical referral. Also provided Zantac, Reglan, and advised return precautions if her vomiting is worsening over the next 24 to 48 hours to return to emergency department for further reevaluation. Her labs are all within normal limits are nonsignificant at this time. Patient understands and agrees with plan. (DENISE HAMILTON) - Vital Signs Vital signs: Temp Pulse Resp BP Pulse Ox 99.1 F 70 16 114/66 100 08/16/19 16:25 08/16/19 16:25 08/16/19 16:25 08/16/19 16:25 08/16/19 16:25 - Laboratory Laboratory results interpreted by me: 08/16/19 08/16/19 08/16/19 09:17 09:17 11:11 RDW 15.8 H Chloride 95 L Carbon Dioxide 37 H BUN 31 H Total Protein 8.9 H Urine Protein 100 H Urine Glucose (UA) 50 H Urine Ketones 80 H Urine Blood LARGE H Urine Urobilinogen 2.0 H Ur Leukocyte Esterase SMALL H Discharge <SOPHIE MOON - Last Filed: 08/16/19 15:53> <DENISE HAMILTON - Last Filed: 08/16/19 18:47> - Discharge Clinical Impression: Abnormal CT of the abdomen, History of gastric ulcer Nausea and vomiting Qualifiers: Vomiting type: unspecified Vomiting Intractability: non-intractable Qualified Code(s): R11.2 - Nausea with vomiting, unspecified Condition: Good Disposition: HOME, SELF-CARE Instructions: Antinausea Medication ([facility]), Reglan ([facility]), Vomiting ([facility]), Gastritis ([facility]) Additional Instructions: If your symptoms are not improving or worsening in the next 24 to 48 hours please return evaluation Prescriptions: Metoclopramide HCl [Reglan 10 mg Tablet] 1 tab PO ASDIR PRN #20 tablet PRN Reason: Ranitidine HCl [Zantac] 150 mg PO BID #60 tablet Referrals: MILADYS SILVEIRA MD [ACTIVE STAFF] - Follow up in 3-5 days (You had abnormal CT of your abdomen showing thickening of your stomach wall and first part of your intestine. He will need a scope to determine further management of this condition)
[2019-08-16 11:33] LABS: APPEARANCE,URINE CLOUDY; BILIRUBIN,URINE NEGATIVE (NEGATIVE); COLOR,URINE YELLOW; GLUCOSE, URINE 50 mg/dL (NEGATIVE); KETONES,URINE 80 mg/dL (NEGATIVE); LEUKOCYTE ESTERASE,URINE SMALL (NEGATIVE); NITRITE,URINE NEGATIVE (NEGATIVE); PROTEIN,URINE 100 mg/dL (NEGATIVE); URINE SPECIFIC GRAVITY 1.038
[2019-08-16] MEDS ORDERED: PROCHLORPERAZINE EDISYLATE INJ 10 MG/2 ML VIAL IV ONE (13:04)
[2019-08-16] MEDS ORDERED: CEFTRIAXONE 1 GM/D5W RTU 1 GM/50 ML RTUPB IV ONE (15:32)
[2019-08-16 16:25] VITALS: BP 114/66
--- NOTE | 2019-08-16 17:41 | RADIOLOGY REPORT (SQ) ---
EXAM DESCRIPTION: CT ABD/PELVIS WITH IV ONLY COMPLETED DATE/TIME: 08/16/2019 2:10 pm REASON FOR STUDY: Abdominal pain, focal right COMPARISON: None. TECHNIQUE: CT scan of the abdomen and pelvis performed using helical scanning technique with dynamic intravenous contrast injection. Water soluble oral contrast oral contrast. Images reviewed with maria t g, soft tissue, and bone windows. Reconstructed coronal and sagittal MPR images reviewed. Delayed pablito ges for evaluation of the urinary system also acquired. All images stored on PACS. All CT scanners at this facility use dose modulation, iterative reconstruction, and/or weight based d osing when appropriate to reduce radiation dose to as low as reasonably achievable (ALARA). [facility]: Dose Right [facility]: CareDose [facility]: Dose Right [facility]: Teradose 4D [facility]: SpikeSource CONTRAST TYPE AND DOSE: contrast/concentration: Isovue 350.00 mg/ml; Total Contrast Delivered: 87.0 ml; Total Saline Delivered: 69.0 ml RENAL FUNCTION: None required. The patient is less than 50 years old. RADIATION DOSE: CT Rad equipment meets quality standard of care and radiation dose reduction techniq ues were employed. CTDIvol: 6.8 - 9.7 mGy. DLP: 895 mGy-cm.. LIMITATIONS: None. FINDINGS: LOWER CHEST: No significant findings. No nodules or infiltrates. LIVER: Normal size. No masses. No dilated ducts. SPLEEN: Normal size. No focal lesions. PANCREAS: No masses. No significant calcifications. No adjacent inflammation or peripancreatic fluid collections. Pancreatic duct not dilated. GALLBLADDER: No identified stones by CT criteria. No inflammatory changes to suggest cholecystitis. ADRENAL GLANDS: No significant masses or asymmetry. RIGHT KIDNEY AND URETER: No solid masses. No significant calcifications. No hydronephrosis or hyd roureter. LEFT KIDNEY AND URETER: No solid masses. No significant calcifications. No hydronephrosis or hydr oureter. AORTA AND VESSELS: No aneurysm. No dissection. Renal arteries, SMA, celiac without stenosis. RETROPERITONEUM: No retroperitoneal adenopathy, hemorrhage or masses. BOWEL AND PERITONEAL CAVITY: There is marked thickening of the gastric wall extending into the duoden um. Hounsfield units 40 indicating solid tissue. Question location of the ligament of Treitz but no obvious obstruction. Vascular structures intact. APPENDIX: Normal. PELVIS: No mass. No free fluid. Normal bladder. ABDOMINAL WALL: No masses. No hernias. BONES: No significant or acute findings. OTHER: No other significant finding. IMPRESSION: Marked thickening of the wall the stomach and duodenum. Highly suspicious for a maligna nt process such is lymphoma. Possible partial malrotation, but no evidence for obstruction or ischemia. TECHNICAL DOCUMENTATION: JOB ID: [id number] Quality ID # [id number]: Final reports with documentation of one or more dose reduction techniques (e.g., Au tomated exposure control, adjustment of the mA and/or kV according to patient size, use of iterative reconstruction technique) 2010 [employer]- All Rights Reserved Reading location - IP/workstation name: [email or web address]
== END 2019-08-16 19:08 | disposition home or self-care (01) ==
LOC: ER 07:43
DX: R11.2 Nausea with vomiting, unspecified (principal); R93.5 Abnormal findings on diagnostic imaging of other abdominal regions, including retroperitoneum; R10.816 Epigastric abdominal tenderness; R10.9 Unspecified abdominal pain; Z87.11 Personal history of peptic ulcer disease; Z97.5 Presence of (intrauterine) contraceptive device; Z88.8 Allergy status to other drugs, medicaments and biological substances; Z88.0 Allergy status to penicillin; Z91.041 Radiographic dye allergy status
CPT/HCPCS: 99284; 96361; 96375; 96365; 36415; 83690; 85025; 81025; 80053; 81001; 74177; J0780; J2405; J7030; J0696

== ENCOUNTER 2019-08-25 07:00 | Day surgery (SDC) | payer OTHER ==
[2019-08-25] MEDS ORDERED: DIPHENHYDRAMINE HCL 50 MG/ML VIAL ONE (07:23)
[2019-08-25] MEDS ORDERED: FLUMAZENIL INJ 0.5 MG/5 ML VIAL ONE (07:24)
[2019-08-25] MEDS ORDERED: GLUCAGON,HUMAN RECOMB 1 MG INJ ONE (07:24)
[2019-08-25] MEDS ORDERED: EPINEPHRINE INJ 1 MG/10 ML DISP.SYRIN ONE (07:24)
[2019-08-25] MEDS ORDERED: ONDANSETRON HCL INJ/PF 4 MG/2 ML SDV ONE (07:24)
[2019-08-25] MEDS ORDERED: NALOXONE HCL INJ/PF 0.4 MG/1 ML SDV ONE (07:24)
[2019-08-25] MEDS: FENTANYL CITRATE INJ/PF 100 MCG/2 ML AMPUL ONE ×3 (07:43→07:54)
[2019-08-25] MEDS: MIDAZOLAM 2 MG/2 ML INJ ONE ×4 (07:43→07:56)
--- NOTE | 2019-08-25 08:09 | Operative Report ---
Nonrecallable Operative Report DATE OF SURGERY: 08/25/19 PREOPERATIVE DIAGNOSIS: Abdominal pain status post gastric bypass POSTOPERATIVE DIAGNOSIS: Anastomotic ulcer, enlarged gastric pouch OPERATION: Esophagogastroduodenoscopy SURGEON: TG [place] ANESTHESIA: Moderate Sedation TISSUE REMOVED OR ALTERED: None COMPLICATIONS: None ESTIMATED BLOOD LOSS: 0 INTRAOPERATIVE FINDINGS: See dictation PROCEDURE: Procedure; after appropriate timeout site verification we commenced the procedure. The Olympus gastroscope was passed into the posterior pharynx and manipulated down past the upper sphincters to the proximal esophagus we then traversed the esophagus through the GE junction into the gastric pouch of note the gastric pouch had a lot of retained fluid and bile within it. Once we suctioned the fluid dry we identified the gastric pouch and the gastrojejunal anastomosis. As we traversed the anastomosis into the jejunum we noted a large ulcer with fibrinous exudate on it it was not bleeding. There were no margret that could be identified in the base of the ulcer. The scope was passed into the proximal jejunum for approximately 30 cm and did not note any other mucosal abnormality. We slowly withdrew the scope again through the gastrojejunal anastomosis and in fact was able to retroflex the scope to look at the GE junction that was within normal limits without evidence of a hiatal hernia however there was a acutely enlarged gastric pouch. Impression status post gastric bypass with gastrojejunal anastomotic ulcer. 2. Enlarged gastric pouch. 3. Large amount of retained gastric secretions consistent with gastric stasis Recommendations continue Carafate and Protonix. Patient will be followed up in surgical clinic and will need to undergo a upper GI to better define the bypass anatomy. Patient may need revision of her gastric bypass due to the enlarged gastric p ouch and a gastric ulcer.
--- NOTE | 2019-08-25 08:10 | Discharge Summary ---
Discharge Summary (SDC) - Discharge Final Diagnosis: Gastrojejunal anastomotic ulcer Date of Surgery: 08/25/19 Discharge Date: 08/25/19 Condition: Good Discharge Diet: As Tolerated Discharge Activity: Activity As Tolerated Report the Following to Your Physician Immediately: Shortness of Breath, Increase in Pain, Fever over 101 Degrees - Follow-up appointment surgical clinic with me in 2 to 3 weeks
[2019-08-25 09:06] VITALS: BP 117/89
== END 2019-08-25 09:11 | disposition home or self-care (01) ==
LOC: END 07:00
PROVIDERS: ATTEND Surgery
DX: K26.9 Duodenal ulcer, unspecified as acute or chronic, without hemorrhage or perforation (principal); Z88.0 Allergy status to penicillin; Z88.6 Allergy status to analgesic agent; Z79.899 Other long term (current) drug therapy; Z01.818 Encounter for other preprocedural examination
CPT/HCPCS: 43235; J2250; J3010; J0171; J1200; J1610; J2310; J2405; J3490

== ENCOUNTER 2020-04-30 13:39 | Emergency (ER) | payer MEDICAID ==
[2020-04-30 14:30] LABS: ABSOLUTE LYMPHOCYTES (AUTO) 1.6 10^3/uL (0.5-4.7); ABSOLUTE MONOCYTES (AUTO) 0.6 10^3/uL (0.1-1.4); ABSOLUTE NEUT (AUTO) 3.5 10^3/uL (1.7-8.2); BASOPHILS % (AUTO) 0.7 % (0-2); EOSINOPHILS % (AUTO) 0.9 % (0-6); HEMATOCRIT 36.9 % (36.0-47.0); HEMOGLOBIN 12.7 g/dL (12.0-15.5); LYMPHOCYTES % (AUTO) 27.5 % (13-45); MEAN CORPUSCULAR HEMOGLOBIN 29.2 pg (27.0-33.4); MEAN CORPUSCULAR HGB CONC 34.4 g/dL (32.0-36.0); MEAN CORPUSCULAR VOLUME 85 fl (80-97); MONOCYTES % (AUTO) 10.2 % (3-13); PLATELET COUNT 307 10^3/uL (150-450); RED BLOOD COUNT 4.36 10^6/uL (3.72-5.28); RED CELL DISTRIBUTION WIDTH 13.5 % (11.5-14.0); SEGMENTED NEUTROPHILS % (AUTO) 60.7 % (42-78); TOTAL CELLS COUNTED % (AUTO) 100 %; WHITE BLOOD COUNT 5.8 10^3/uL (4.0-10.5)
[2020-04-30 14:46] LABS: APPEARANCE,URINE SLIGHTLY-CLOUDY; BILIRUBIN,URINE NEGATIVE (NEGATIVE); COLOR,URINE YELLOW; GLUCOSE, URINE NEGATIVE (NEGATIVE); KETONES,URINE 80 mg/dL (NEGATIVE); LEUKOCYTE ESTERASE,URINE LARGE (NEGATIVE); NITRITE,URINE NEGATIVE (NEGATIVE); PROTEIN,URINE NEGATIVE (NEGATIVE); URINE SPECIFIC GRAVITY 1.019; UROBILINOGEN,URINE NEGATIVE mg/dL (<2.0)
[2020-04-30 14:56] LABS: ACETAMINOPHEN < 10 ug/mL (10-30); ALBUMIN 4.2 g/dL (3.5-5.0); ALCOHOL < 10 mg/dL (NONE DETECTED); ALKALINE PHOSPHATASE 61 U/L (38-126); ANION GAP 7 (5-19); ASPARTATE AMINO TRANSFERASE 21 U/L (14-36); BILIRUBIN,TOTAL 0.5 mg/dL (0.2-1.3); BLOOD UREA NITROGEN 10 mg/dL (7-20); CALCIUM 9.8 mg/dL (8.4-10.2); CARBON DIOXIDE 28 mmol/L (22-30); CHLORIDE 100 mmol/L (98-107); GLUCOSE 121 mg/dL (75-110); POTASSIUM 4.7 mmol/L (3.6-5.0); SALICYLATE < 1.0 mg/dL (2.0-20.0)
[2020-04-30 15:05] LABS: URINE AMPHETAMINES SCREEN NEGATIVE; URINE BARBITURATES SCREEN NEGATIVE; URINE BENZODIAZEPINES SCREEN NEGATIVE; URINE COCAINE SCREEN NEGATIVE; URINE METHADONE SCREEN NEGATIVE; URINE PHENCYCLIDINE SCREEN NEGATIVE
[2020-04-30 15:10] LABS: URINE MARIJUANA (THC) SCREEN UNCONFIRMED POSITIVE
[2020-04-30] MEDS ORDERED: LORAZEPAM INJ 2 MG/1 ML VIAL IM ONE (15:46)
[2020-04-30] MEDS ORDERED: HALOPERIDOL LACTATE INJ 5 MG/1 ML VIAL IM ONE (15:47)
[2020-04-30] MEDS ORDERED: DIPHENHYDRAMINE HCL 50 MG/ML VIAL IM ONE (15:48)
--- NOTE | 2020-04-30 16:44 | RADIOLOGY REPORT (SQ) ---
EXAM DESCRIPTION: CHEST SINGLE VIEW IMAGES COMPLETED DATE/TIME: 04/30/2020 3:25 pm REASON FOR STUDY: altered mental status COMPARISON: 03/03/2011 EXAM PARAMETERS: NUMBER OF VIEWS: One view. TECHNIQUE: Single frontal radiographic view of the chest acquired. RADIATION DOSE: NA LIMITATIONS: None. FINDINGS: LUNGS AND PLEURA: No opacities, masses or pneumothorax. No pleural effusion. MEDIASTINUM AND HILAR STRUCTURES: No masses. Contour normal. HEART AND VASCULAR STRUCTURES: Heart normal in size. Normal vasculature. BONES: No acute findings. HARDWARE: None in the chest. OTHER: No other significant finding. IMPRESSION: NO ACUTE RADIOGRAPHIC FINDING IN THE CHEST. TECHNICAL DOCUMENTATION: JOB ID: [id number] 2010 [employer]- All Rights Reserved Reading location - IP/workstation name: [email or web address]
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
--- NOTE | 2020-04-30 21:42 | EKG REPORT ---
SEVERITY:- ABNORMAL ECG - SINUS ARRHYTHMIA, RATE 60-93 BORDERLINE RIGHT AXIS DEVIATION NONSPECIFIC T ABNORMALITIES, ANTERIOR LEADS : Confirmed by: Kristie Arizmendi 30-Apr-2020 21:42:39
[2020-04-30] MEDS ORDERED: BENZTROPINE MESYLATE INJ 2 MG/2 ML AMPULE IM ONE (22:15)
[2020-04-30] MEDS ORDERED: OLANZAPINE INJ/PF 10 MG SDV IM ONE (23:00)
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
[2020-05-01] MEDS: BENZTROPINE MESYLATE INJ 2 MG/2 ML AMPULE IM SCH ×2 (07:25→09:29)
[2020-05-01] MEDS: OLANZAPINE INJ/PF 10 MG SDV IM SCH ×3 (07:29→18:42)
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
[2020-05-01] MEDS: BENZTROPINE MESYLATE 1 MG TABLET PO SCH (18:42)
[2020-05-01] MEDS: OLANZAPINE 5 MG TABLET PO SCH (18:42)
[2020-05-02] MEDS: OLANZAPINE 5 MG TABLET PO SCH ×2 (10:05→17:44)
[2020-05-02] MEDS: BENZTROPINE MESYLATE 1 MG TABLET PO SCH (10:06)
--- NOTE | 2020-05-02 16:12 | ER Document Report ---
Doctor's Note Notes: 05/02/20 16:09 Progress note: Reevaluation of the patient today. She is resting comfortably in the room. She has no complaints. She is very pleasant and watching TV. Makes good conversation. Of note her urinalysis laboratory study did show some ketones and leukocytes. It is of note that it also demonstrated 6 squamous cells. This is consistent with a [id number]. I catch was contaminated by the patient's normal genital cinthya as confirmed by the urine culture. This is not significant for infection as well as the patient denies any urinary complaints. She does not require any treatment for this. General: Pleasant, appropriate in no acute distress. Heart: Regular rate and rhythm. Lungs: Clear to auscultation bilaterally. Psych smiling, carrying on a good conversation with an appropriate affect and mentation. Patient is currently stable. We are still seeking placement from the psychiatry team who is working on potentially getting her to [facility]. At this point if she is accepted to [facility] she is currently stable for transfer. We will continue to monitor.
[2020-05-02 19:06] VITALS: BP 123/75
== END 2020-05-02 19:35 ==
LOC: ER 13:39
DX: R41.82 Altered mental status, unspecified (principal); Z88.0 Allergy status to penicillin
CPT/HCPCS: 93005; 99285; 96372; 96374; 36415; 87086; 80307 ×4; 85025; 80053; 81001; 84484; 71045; 93010; J3490 ×5; J0515; J1200; J1630; J2060